=== PATIENT | female | born 1995 | race Hispanic/Latino ===

== ENCOUNTER → 2024-01-13 | Outpatient (REF) | payer BC ==
[~2024-01-13] MED LIST: IOPAMIDOL 370 MG/ML 100 ML INFUS..BTL INJ ONE
== END ==
LOC: DX 09:14
PROVIDERS: ATTEND Obstetrics & Gynecology
DX: N97.9 Female infertility, unspecified (principal)
CPT/HCPCS: 58340; 74740; 81025; Q9967